=== PATIENT | male | born 1995 | race Caucasian/White ===

== ENCOUNTER 2023-08-20 00:15 | Emergency (ER) | payer OTHER ==
[2023-08-20 00:32] VITALS: BP 136/88; PULSE 98; RESP 18; TEMP 98.3; BMI 25.8
[2023-08-20] MEDS: OXYMETAZOLINE 0.05% NASAL SOLUTION 15 ML BOTTLE NS ONE (01:43)
[2023-08-20] MEDS: PSEUDOEPHEDRINE HCL 30 MG TABLET PO ONE (01:43)
[2023-08-20] MEDS: ALBUTEROL SO4 2.5/IPRATROPIUM 0.5 INH SOL 3 ML VIAL.NEB. NEB SCH (02:00)
[2023-08-20] MEDS ORDERED: ALBUTEROL SO4 2.5/IPRATROPIUM 0.5 INH SOL 3 ML VIAL.NEB. NEB ONE (02:04)
== END 2023-08-20 02:54 | disposition home or self-care (01) ==
LOC: JER 00:15
PROC: 3E0F7GC Introduction of Other Therapeutic Substance into Respiratory Tract, Via Natural or Artificial Opening (ICD-10-PCS; principal; 2023-08-20)
DX: R09.81 Nasal congestion (principal); H57.89 Other specified disorders of eye and adnexa; R07.89 Other chest pain; R05.9 Cough, unspecified; J06.9 Acute upper respiratory infection, unspecified; H10.9 Unspecified conjunctivitis; Z20.822 Contact with and (suspected) exposure to COVID-19
CPT/HCPCS: 0241U-QW; 71046-TC-FY; 93005; 93010; 99285-25